=== PATIENT | female | born 1995 | race Caucasian/White ===

== ENCOUNTER 2016-11-01 13:49 | Emergency (ER) | payer OTHER ==
[~2016-11-01] VITALS: Ht 149.9 cm; Wt 42.6 kg
[~2016-11-01 13:49] MED LIST: VALTREX1 GM PO
[2016-11-01 13:53] VITALS: BP 132/87
[2016-11-01] MEDS ORDERED: DELTASONE20 MG PO (15:01)
[2016-11-01] MEDS ORDERED: PROAIR HFA8.5 GM INH (15:01)
[2016-11-01] MEDS ORDERED: ZYRTEC10 M3 PO (15:01)
--- NOTE | 2016-11-01 15:02 | ED SKIN/ALLERGY COMPLAINT ---
History of Present Illness General Chief Complaint: General Adult Stated Complaint: MED REFILL, RASH ON FACE Source: patient Exam Limitations: no limitations Vital Signs & Intake/Output Vital Signs & Intake/Output Vital Signs Date Time Temp Pulse Resp B/P B/P Pulse O2 O2 Flow FiO2 Mean Ox Delivery Rate 11/01 1353 97.1 76 18 132/87 98 Room Air Allergies Coded Allergies: MDX - Clarithromycin (From BIAXIN) (hives 05/16/11) Uncoded Allergies: ENVIRONMENTAL (08/15/11) Reconcile Medications Albuterol Sulfate (Proair Hfa) 90 MCG HFA.AER.AD 2 PUF INH Q4-6 PRN PRN SOB Cetirizine HCl (Zyrtec) 10 MG TABLET 1 TAB PO DAILY ALLERGIES Prednisone (Deltasone) 20 MG TABLET 1 TAB PO BID RASH VALACYCLOVIR HCL (Valtrex) 1 GM TAB 2 TAB PO Q12 COLD SORE Triage Note: PT COMPLAINS OF RASH TO FACE THAT HAS BEEN INTERMITTANT X 1 YEAR. ANS ALSO STATES THAT SHE NEEDS REFILL ON HER ALLERGIE MEDS Triage Nurses Notes Reviewed? yes Onset: Abrupt Duration: day(s):, week(s): Severity: mild, moderate Location: face No Modifying Factors: none : No Patient currently breastfeeds: No HPI: 21-year-old female comes into emergency room requesting a refill on her pro-air as well as complaints of rash on her face. Patient reports the rash is been there for many months. She's been using topical metronidazole cream at home. 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 Denies any fever. Patient reports that she's had this rash intermittently for years. She denies any other associated symptoms. Denies any new skin care products. Denies any new foods. Denies any other associated symptoms. (KAPIL THOMSON) Past History Travel History Traveled to [place] past 21 day No Medical History Any Pertinent Medical History? 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 No (KAPIL THOMSON) Review of Systems Review of Systems Constitutional: Reports: no symptoms. EENTM: Reports: no symptoms. Respiratory: Reports: no symptoms. Cardiovascular: Reports: no symptoms. GI: Reports: no symptoms. Genitourinary: Reports: no symptoms. Musculoskeletal: Reports: no symptoms. Skin: Reports: see HPI. Neurological/Psychological: Reports: no symptoms. Hematologic/Endocrine: Reports: no symptoms. Immunologic/Allergic: Reports: no symptoms. All Other Systems: Reviewed and Negative (KAPIL THOMSON) Physical Exam Physical Exam General Appearance: well developed/nourished, mild distress Head: atraumatic Eyes: Bilateral: normal appearance. Ears, Nose, Throat: normal ENT inspection, hearing grossly normal Neck: normal inspection Respiratory: no respiratory distress Cardiovascular: regular rate/rhythm Back: normal inspection Extremities: normal inspection, normal range of motion, no edema Neurologic/Psych: awake, alert, oriented x 3, normal mood/affect Skin: intact, rash Skin Problem Location: face, macular papular patchy rash on left cheek around nose and around mouth and on right cheek Lymphatic: no anterior cervical ziyad (KAPIL THOMSON) Progress Differential Diagnosis: abscess/cellulitis, allergic reaction, anaphylaxis, angioedema, contact dermatitis, drug reaction, erythema multiforme, piyriasis rosea, shingles, urticaria, eczema Plan of Care: 11/01/2016 3:56:46 PM Patient clinically looks well. Patient is nontoxic-appearing. Patient is in no apparent distress. Patient treated with prednisone for possible eczema. Refill on pro-air for her asthma. She clinically looks well on discharge. Follow-up with steward/stewardess dining room as needed. Return if any other concerns. (KAPIL THOMSON) Departure Departure Disposition: HOME OR SELF CARE Condition: Stable Clinical Impression Primary Impression: Medication refill Secondary Impressions: Rash Referrals: PATIENT HAS NO PRIMARY CARE DR (PCP/Family) Additional Instructions: Take pro-air, Zyrtec, and prednisone as prescribed. Follow-up with steward/stewardess dining room as needed. Return if any concerns worsening symptoms. Please go over all results of today's visit with your primary care doctor. Contact your primary care doctor to let them know you were here in the emergency room. There may be nonspecific findings which may not be related to your visit today here in the emergency room but may require further evaluation and chronic monitoring by your primary care doctor. If you had a laceration today the chance of foreign body always remains. You should follow-up with your primary care doctor for recheck in 3-5 days for a wound check. If you had an x-ray done there is a chance that a fracture could have been missed on initial read and you should follow-up with your primary care doctor for repeat x-rays if symptoms persist. If your blood pressure was elevated here in the emergency room please have rechecked by her primary care doctor within the next 48 hours by your primary care doctor. If you were prescribed a narcotic here in the emergency room or any type of controlled substances you're not allowed to drive while taking this medication or operate any type of heavy machinery. Narcotics can make you feel lightheaded dizziness nausea and can cause constipation. You may need to berry picker a stool softener. Thank you for choosing [facility] emergency room. Please return to the emergency room immediately if you have any other concerns worsening of symptoms. Departure Forms: Customer Survey General Discharge Information Prescriptions: Current Visit Scripts Prednisone (Deltasone) 1 TAB PO BID #10 MG Albuterol Sulfate (Proair Hfa) 2 PUF INH Q4-6 PRN PRN SOB #1 INHAL Cetirizine HCl (Zyrtec) 1 TAB PO DAILY #30 TAB Ref 1 (KAPIL THOMSON) PA/RIBBON BLOCKMAKER Co-Sign Statement Statement: ED Attending supervision documentation- [] I saw and evaluated the patient. I have also reviewed all the pertinent lab results and diagnostic results. I agree with the findings and the plan of care as documented in the PA's/RIBBON BLOCKMAKER's documentation. [X] I have reviewed the ED Record and agree with the PA's/RIBBON BLOCKMAKER's documentation. [] Additions or exceptions (if any) to the PAs/RIBBON BLOCKMAKER's note and plan are summarized below: [] (EDINSON VERMA,CORA)
== END 2016-11-01 15:30 ==
LOC: ERH 13:49
DX: R21 Rash and other nonspecific skin eruption (principal); Z76.0 Encounter for issue of repeat prescription

== ENCOUNTER 2016-11-13 13:07 | Emergency (ER) | payer OTHER ==
[~2016-11-13] VITALS: Ht 149.9 cm; Wt 43.1 kg
[~2016-11-13 13:07] MED LIST changes: +DELTASONE20 MG PO; +PROAIR HFA8.5 GM INH; +ZYRTEC10 M3 PO
--- NOTE | 2016-11-13 13:46 | ED GI/GU/ABDOMINAL COMPLAINT ---
History of Present Illness General Chief Complaint: Female Urogenital Problems Stated Complaint: ?UTI, PAIN WITH URINATION Source: patient Exam Limitations: no limitations Vital Signs & Intake/Output Vital Signs & Intake/Output Vital Signs Date Time Temp Pulse Resp B/P B/P Pulse O2 O2 Flow FiO2 Mean Ox Delivery Rate 11/13 1450 98.9 80 20 120/80 98 Room Air 11/13 1335 99.5 88 18 121/79 95 Room Air Allergies Coded Allergies: clarithromycin (HIVES 11/13/16) Uncoded Allergies: ENVIRONMENTAL (08/15/11) Reconcile Medications Cephalexin (Keflex) 500 MG CAPSULE 1 CAP PO TID uti Etonogestrel/Ethinyl Estradiol (Nuvaring Vaginal Ring) 0.12 MG -0.015 MG/24 HR VAG.RING 1 EACH VG Q30D BC (Reported) use for 3 weeks, skip for 1 week Triage Note: C/O URINARY BURNING X 5 DAYS, TOOK AZO (OTC) FOR 2 DAYS. NOW C/O R FLANK PAIN, PAINFUL URINATION. LMP: 1 WEEK AGO. Triage Nurses Notes Reviewed? yes LMP (ages 10-50): date (1 WEEK) ? N Is pt currently ? No Onset: Abrupt Duration: day(s): (5), constant, continues in ED Timing: single episode today Quality/Severity: burning, PRESSURE Severity Numbers: 6 Location: suprapubic Radiation: no radiation Activities at Onset: none Prior Abdominal Problems: none Past Sexual History: Unobtainable at this time Sexually Active: Yes Last Time You Were Sexual: less than 2 months ago No Modifying Factors: none Modifying Factors: Worsens With: palpation, urinating. Associated Symptoms: urinary frequency HPI: 21-year-old female witha past medical history presents complaining of burning with urination and suprapubic pressure for the past 5 days. Patient reports symptoms started initially with dysuria has been gradually worsening. She took Azo 2 days ago with some improvement but her symptoms have returned. She also reports frequency and urgency. Pain is located in the superpubic area and described as pressure. It is worse when she urinates or touches the area. Rates the pain when she urinates a 7 out of 10. Denies any fevers, back pain, vaginal discharge, vaginal bleeding. She is sexually active with one partner and does not use protection. No history of STDs. No other associated symptoms. (HAYDEE SANABRIA,SHILPA) Past History Travel History Traveled to [place] past 21 day No Medical History Any Pertinent Medical History? 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 No (SHILPA HUBBARD PA-C) Review of Systems Review of Systems Constitutional: Reports: no symptoms. EENTM: Reports: no symptoms. Respiratory: Reports: no symptoms. Cardiovascular: Reports: no symptoms. GI: Reports: see HPI, abdominal pain (suprapubic). Genitourinary: Reports: see HPI, dysuria, frequency, urgency. Musculoskeletal: Reports: no symptoms. Skin: Reports: no symptoms. Neurological/Psychological: Reports: no symptoms. Hematologic/Endocrine: Reports: no symptoms. Immunologic/Allergic: Reports: no symptoms. All Other Systems: Reviewed and Negative (HAYDEE SANABRIA,SHILPA) Physical Exam Physical Exam General Appearance: well developed/nourished, no apparent distress, alert, awake , anxious Head: atraumatic, normal appearance Eyes: Bilateral: normal appearance, PERRL, EOMI, normal inspection. Ears, Nose, Throat, Mouth: hearing grossly normal, moist mucous membrane, Tympanic normal Neck: normal inspection, supple, full range of motion, normal alignment Respiratory: normal breath sounds, chest non-tender, no respiratory distress Cardiovascular: regular rate/rhythm, normal peripheral pulses Peripheral Pulses: 2+ tibialis posterior (R), 2+ tibialis posterior (L), 2+ dorsalis pedis (R), 2+ dorsalis pedis (L) Gastrointestinal: normal bowel sounds, soft, no organomegaly, tenderness ( suprapubic) Back: normal inspection, normal range of motion, no vertebral tenderness Extremities: normal range of motion Neurologic/Psych: no motor/sensory deficits, awake, alert, oriented x 3, normal gait, normal mood/affect Skin: intact, normal color, warm/dry Core Measures ACS in differential dx? No Severe Sepsis Present: No Septic Shock Present: No (HAYDEE SANABRIA,SHILPA) Progress Differential Diagnosis: appendicitis, biliary colic, cholecystitis, diverticulitis, kidney stone, threatened AB, UTI/pyelo Plan of Care: Orders Procedure Date/time Status Add-on Test (ER Only) 11/13 1422 Active CULTURE,URINE 11/13 142 Active URINE 11/13 1328 Complete URINALYSIS 11/13 1328 Complete Laboratory Tests 11/13/16 1412: Urine Test Cancelled 11/13/16 1341: Urinalysis LIGHT H, Urine Color YEL, Urine Clarity HAZY H, Urine pH 6.0, Ur Specific [place] 1.010, Urine Protein 30 H, Urine Ketones NEG, Urine Nitrite POS H, Urine Bilirubin NEG, Urine Urobilinogen 0.2, Ur Leukocyte Esterase LARGE H, Ur Microscopic SEDIMENT EXAMINED, Urine RBC 10-15 H, Urine WBC > 75 H, Ur Epithelial Cells FEW, Urine Bacteria MANY H, Urine Hemoglobin MOD H, Urine Glucose NEG, Urine Test NEGATIVE Microbiology 11/13 1421 URINE ROUT: Urine Culture - RECD Urine is showing signs of infection. Patient will be treated with cephalexin 3 times a day for one week. She will then follow up with her primary care doctor. DISCUSSED all results with patient and she agrees with plan. She is nontoxic appearing at discharge. (SHILPA HUBBARD PA-C) Initial ED EKG: none (SHILPA HUBBARD PA-C) Departure Departure Disposition: HOME OR SELF CARE Condition: Stable Clinical Impression Primary Impression: UTI (urinary tract infection) Qualifiers: Urinary tract infection type: acute cystitis Hematuria presence: without hematuria Qualified Code: N30.00 - Acute cystitis without hematuria Referrals: PATIENT HAS NO PRIMARY CARE DR (PCP/Family) Additional Instructions: Rest and drink plenty of fluids. Take cephalexin as directed for the full course. Make a follow-up appt with your primary care doctor this coming week. Return to the emergency department with any concerns. Please go over all results of today's visit with your primary care doctor. Contact your primary care doctor to let them know you were here in the emergency room. There may be nonspecific findings which may not be related to your visit today here in the emergency room but may require further evaluation and chronic monitoring by your primary care doctor. If you had a laceration today the chance of foreign body always remains. You should follow-up with your primary care doctor for recheck in 3-5 days for a wound check. If you had an x-ray done there is a chance that a fracture could have been missed on initial read and you should follow-up with your primary care doctor for repeat x-rays if symptoms persist. If your blood pressure was elevated here in the emergency room please have rechecked by her primary care doctor within the next 48 hours by your primary care doctor. If you were prescribed a narcotic here in the emergency room or any type of controlled substances you're not allowed to drive while taking this medication or operate any type of heavy machinery. Narcotics can make you feel lightheaded dizziness nausea and can cause constipation. You may need to picker tender helper a stool softener. Thank you for choosing [facility] emergency room. Please return to the emergency room immediately if you have any other concerns worsening of symptoms. Departure Forms: Customer Survey General Discharge Information Prescriptions: Current Visit Scripts Cephalexin (Keflex) 1 CAP PO TID #21 CAP (SHILPA HUBBARD PA-C) PA/SALES SERVICE PROFESSIONAL Co-Sign Statement Statement: ED Attending supervision documentation- [] I saw and evaluated the patient. I have also reviewed all the pertinent lab results and diagnostic results. I agree with the findings and the plan of care as documented in the PA's/SALES SERVICE PROFESSIONAL's documentation. [X] I have reviewed the ED Record and agree with the PA's/SALES SERVICE PROFESSIONAL's documentation. [] Additions or exceptions (if any) to the PAs/SALES SERVICE PROFESSIONAL's note and plan are summarized below: [] (NEVILLE YIN DO
[2016-11-13] MEDS ORDERED: NUVARING VAGIN1 EACH VG (13:55)
[2016-11-13] MEDS ORDERED: KEFLEX500 M1 PO (14:34)
[2016-11-13 14:50] VITALS: BP 120/80
== END 2016-11-13 14:50 ==
LOC: ERH 13:07
DX: N39.0 Urinary tract infection, site not specified (principal)
CPT/HCPCS: 81001; 81025; 87086